=== PATIENT | female | born 1955 | race Two or more races ===

== ENCOUNTER → 2016-02-22 | Outpatient (CLI) | payer OTHER ==
--- NOTE | 2016-02-22 12:37 | RADRPT ---
PROCEDURE: XR left knee. CLINICAL INDICATION: Knee pain. TECHNIQUE: AP weightbearing, lateral weight bearing and sunrise views are available for review. COMPARISON: No comparison available FINDINGS: There is a total knee replacement. There is no evidence of loosening of the prosthesis. The osseous structures are normal in mineralization, architecture and alignment No acute fracture or dislocation is seen.No osseous lesions are identified. The soft tissues are unremarkable . IMPRESSION: Unremarkable total knee replacement. RPTAT: [facility] .Hamilton Fitch MD, Date Time Electronically viewed and signed by .Hamilton Fitch MD, on 02/22/2016 12:36 .B/
== END | disposition home or self-care (01) ==
LOC: HKI 08:53
PROVIDERS: ATTEND Orthopaedic Surgery
DX: M25.662 Stiffness of left knee, not elsewhere classified (principal); M25.562 Pain in left knee; I10 Essential (primary) hypertension; Z96.652 Presence of left artificial knee joint
CPT/HCPCS: 73562; Z7500; G0463